=== PATIENT | female | born 1980 | race Caucasian/White ===

== ENCOUNTER 2020-08-12 12:11 | Outpatient (CLI) | payer OTHER, SELFPAY ==
--- NOTE | ~2020-08-12 | MM_ITS ---
EXAMINATION: MM screening toribio BI w nakia HISTORY: Screening mammogram TECHNIQUE: Craniocaudal and mediolateral oblique 3-D tomosynthesis images were obtained and synthetic 2-D images were generated. CAD analysis was submitted and interpreted. COMPARISON: No prior mammogram is available for comparison at this institution. BREAST PARENCHYMAL COMPOSITION: There are scattered areas of fibroglandular density. FINDINGS: There is asymmetry in the upper outer left breast. Diagnostic left mammogram and left breas t ultrasound examination are recommended. Otherwise there is no evidence of suspicious mass, calcification, or architectural distortion to sugg est malignancy in either breast. IMPRESSION: 1. Left upper outer quadrant breast mammographic asymmetry 2. Diagnostic left mammogram and left breast ultrasound examination are recommended. BI-RADS Category 0: Incomplete: Needs additional imaging evaluation. Reviewed, dictated and finalized at location A. IMPRESSION: 1. Left upper outer quadrant breast mammographic asymmetry 2. Diagnostic left mammogram and left breast ultrasound examination are recomme nded. BI-RADS Category 0: Incomplete: Needs additional imaging evaluation.
== END 2020-08-12 12:12 | disposition home or self-care (01) ==
PROVIDERS: PCP Nurse Practitioner; Visit Provider Nurse Practitioner
DX: Z12.31 Encounter for screening mammogram for malignant neoplasm of breast (principal)
CPT/HCPCS: 77063; 77067

== ENCOUNTER 2020-11-26 09:31 | Outpatient (CLI) | payer OTHER, SELFPAY ==
--- NOTE | ~2020-11-26 | MMUS_ITS ---
EXAMINATION: MM diagnostic toribio LT w nakia, US breast LT limited HISTORY: Mammographic asymmetry in upper outer left breast on 08/12/2020 screening mammogram TECHNIQUE: Additional 3-D tomosynthesis images of the left breast were performed and synthetic 2-D im ages were generated. CAD analysis was submitted and interpreted. High resolution upper outer quadrant left breast ultrasound was performed. COMPARISON: 08/12/2020 bilateral digital screening mammogram 06/14/2018 bilateral digital screening mammogram FINDINGS: MAMMOGRAPHIC FINDINGS: No reproducible focal mass lesion on orthogonal views is detected ULTRASOUND: 1:00 3 cm from nipple: 1.8 x 3.3 x 3.0 mm circumscribed parallel hypoechoic lesion without internal v ascularity or posterior shadowing, likely benign 1:00 4 cm from nipple: Parallel circumscribed 2.6 x 4.1 x 3.9 mm sonolucency with through transmissio n posterior enhancement, no internal vascularity, consistent with benign cysts 3:00 4 cm from nipple: Parallel circumscribed 3.1 x 6.6 x 8.4 mm sonolucency, consistent with cyst 2:00 2 cm from nipple: Parallel circumscribed mildly irregular hypoechoic 2.8 x 4.4 x 4.9 mm lesion w ith some posterior shadowing; ultrasound-guided biopsy is recommended IMPRESSION: 1. Posterior shadowing or 0.9 mm lesion at 2:00 2 cm from nipple 2. Ultrasound-guided biopsy of 2:00 lesion 2 cm from nipple is recommended BI-RADS category 4, suspicious findings. Reviewed, dictated and finalized at location A. IMPRESSION: 1. Posterior shadowing or 0.9 mm lesion at 2:00 2 cm from nipple 2. Ultrasound-guided biopsy of 2:00 lesion 2 cm from nipple is recommended BI-RADS category 4, suspicious findings.
== END 2020-11-26 09:32 | disposition home or self-care (01) ==
LOC: CHSIMG 09:32
PROVIDERS: PCP Nurse Practitioner; Visit Provider Nurse Practitioner
DX: R92.8 Other abnormal and inconclusive findings on diagnostic imaging of breast (principal)
CPT/HCPCS: 76642; 77061; 77065; G0279

== ENCOUNTER 2020-12-08 13:28 | Outpatient (CLI) | payer OTHER, SELFPAY ==
--- NOTE | ~2020-12-08 | US_ITS ---
EXAMINATION: Consultation US INDICATION: Mass in the upper outer quadrant of the right breast. TECHNIQUE: Limited high-resolution left breast ultrasound is performed. COMPARISON: None available FINDINGS: Patient presents for ultrasound-guided biopsy of the left breast mass seen on diagnostic ma mmogram and ultrasound. With real-time scanning, a mass at the 2:00 location 2 cm from the nipple shruti suring up to 5 mm has sonographic features suggestive of a cyst. Other areas seen on recent ultrasoun d appear to be due to shadowing from supporting ligaments. This was discussed with the patient and a course of six-month follow-up mammogram and ultrasound were decided upon. IMPRESSION: 1. Probably benign left breast mass. Follow-up left diagnostic mammogram and ultrasound in six months are recommended. BI-RADS category 3, probably benign findings. Reviewed, dictated and finalized at location D. IMPRESSION: 1. Probably benign left breast mass. Follow-up left diagnostic mammogram and ul trasound in six months are recommended. BI-RADS category 3, probably benign findings.
== END 2020-12-08 13:29 | disposition home or self-care (01) ==
LOC: CHSIMG 13:29
PROVIDERS: PCP Nurse Practitioner; Visit Provider Nurse Practitioner
DX: R92.8 Other abnormal and inconclusive findings on diagnostic imaging of breast (principal)
CPT/HCPCS: 99199

== ENCOUNTER 2021-07-25 09:06 | Outpatient (CLI) | payer OTHER, SELFPAY ==
--- NOTE | ~2021-07-25 | MMUS_ITS ---
EXAMINATION: MM diagnostic toribio LT w nakia, US breast LT limited HISTORY: Follow-up of abnormal finding at 2:00 2 cm from nipple on 11/22/2020 left breast ultrasound e xamination TECHNIQUE: Full field and spot 3-D tomosynthesis images of the left breast were performed and synthet ic 2-D images were generated. CAD analysis was submitted and interpreted. High resolution upper outer and lower-outer quadrant left breast ultrasound was performed. COMPARISON: 11/22/2020 diagnostic left mammogram and limited left breast ultrasound BREAST PARENCHYMAL COMPOSITION: There are scattered areas of fibroglandular density. FINDINGS: MAMMOGRAPHIC FINDINGS: There is suggestion of a focal area of asymmetry in the outer mid left breast at mid to posterior dep th (craniocaudal Tomosynthesis images 39, 40/74) on the initial full field left CC view, but this is not confirmed on coned compression CC view no her on ML or MLO imaging. No suspicious mass, architectural distortion, malignant calcification, skin thickening or retraction is noted otherwise. ULTRASOUND: There are scattered occasional parallel circumscribed hypoechoic and sonolucent areas, the largest si tuated at 3:00 4 cm from the nipple, measuring 7.9 x 3.3 x 6.2 mm, with through transmission posterio r shadowing. No suspicious mass or shadowing is detected. IMPRESSION: 1. No mammographic evidence of malignancy 2. Routine annual mammographic screening is recommended BI-RADS Category 2: Benign finding(s). Reviewed, dictated and finalized at location A. IMPRESSION: 1. No mammographic evidence of malignancy 2. Routine annual mammographic screening is recommended BI-RADS Category 2: Benign finding(s).
== END 2021-07-25 09:07 | disposition home or self-care (01) ==
LOC: CHSIMG 09:11
PROVIDERS: PCP Nurse Practitioner
DX: R92.8 Other abnormal and inconclusive findings on diagnostic imaging of breast (principal)
CPT/HCPCS: 76642; 77061; 77065; G0279

== ENCOUNTER 2021-09-12 13:59 | Outpatient (CLI) | payer OTHER, SELFPAY ==
--- NOTE | ~2021-09-12 | MM_ITS ---
EXAMINATION: MM screening toribio RT w nakia HISTORY: Screening right mammogram, recent left diagnostic mammogram TECHNIQUE: Craniocaudal and mediolateral oblique 3-D tomosynthesis images were obtained and synthetic 2-D images were generated. CAD analysis was submitted and interpreted. COMPARISON: 08/12/2020, 06/14/2018 BREAST PARENCHYMAL COMPOSITION: There are scattered areas of fibroglandular density. FINDINGS: There is no suspicious mass, calcification, or architectural distortion to suggest malignan cy. There has been no suspicious interval change. IMPRESSION: 1. No mammographic evidence of malignancy. 2. Recommend routine screening mammography in one year. BI-RADS Category 1: Negative Reviewed, dictated and finalized at location A.
== END 2021-09-12 14:00 | disposition home or self-care (01) ==
LOC: CHSIMG 14:01
PROVIDERS: PCP Nurse Practitioner; Visit Provider Nurse Practitioner
DX: Z12.31 Encounter for screening mammogram for malignant neoplasm of breast (principal)
CPT/HCPCS: 77063; 77067

== ENCOUNTER 2022-09-15 08:43 | Outpatient (CLI) | payer BC, SELFPAY ==
--- NOTE | ~2022-09-15 | MM_ITS ---
EXAMINATION: MM screening toribio BI w nakia HISTORY: Screening mammogram TECHNIQUE: Craniocaudal and mediolateral oblique 3-D tomosynthesis images were obtained and synthetic 2-D images were generated. CAD analysis was submitted and interpreted. COMPARISON: 09/12/2021 bilateral screening mammogram 07/25/2021 diagnostic left mammogram and limited left breast ultrasound examination 11/22/2020 diagnostic left mammogram and limited left breast ultrasound examination 08/12/2020, 06/14/2018 bilateral screening mammogram examinations BREAST PARENCHYMAL COMPOSITION: There are scattered areas of fibroglandular density. FINDINGS: There is no evidence of suspicious mass, calcification, or architectural distortion to sugg est malignancy in either breast. There has been no suspicious interval change. IMPRESSION: 1. No mammographic evidence of malignancy. 2. Recommend routine screening mammography in one year. BI-RADS Category 1: Negative Reviewed, dictated and finalized at location A.
== END 2022-09-15 08:44 | disposition home or self-care (01) ==
LOC: CHSIMG 08:47
PROVIDERS: PCP Nurse Practitioner; Visit Provider Nurse Practitioner
DX: Z12.31 Encounter for screening mammogram for malignant neoplasm of breast (principal)
CPT/HCPCS: 77063; 77067

== ENCOUNTER 2023-09-26 13:16 | Outpatient (CLI) | payer BC, SELFPAY ==
--- NOTE | ~2023-09-26 | MM_ITS ---
EXAMINATION: MM screening [facility] BI w n[place] HISTORY: Screening TECHNIQUE: Craniocaudal and mediolateral oblique 3-D tomosynthesis images were obtained and synthetic 2-D images were generated. CAD analysis was submitted and interpreted. COMPARISON: Comparison to multiple prior studies sequentially, with oldest reviewed study dated 06/14. BREAST PARENCHYMAL COMPOSITION: Not dense: There are scattered areas of fibroglandular density. FINDINGS: There is no evidence of suspicious mass, calcification, or architectural distortion to sugg est malignancy in either breast. There has been no suspicious interval change. IMPRESSION: 1. No mammographic evidence of malignancy. 2. Recommend routine screening mammography in one year. BI-RADS Category 1: Negative Reviewed, dictated and finalized at location B.
== END 2023-09-26 13:17 | disposition home or self-care (01) ==
LOC: CHSIMG 13:17
PROVIDERS: PCP Nurse Practitioner; Visit Provider Nurse Practitioner
DX: Z12.31 Encounter for screening mammogram for malignant neoplasm of breast (principal)
CPT/HCPCS: 77063; 77067

== ENCOUNTER 2024-10-22 13:15 | Outpatient (CLI) | payer BC, SELFPAY ==
--- NOTE | ~2024-10-22 | MM_ITS ---
EXAMINATION: MM screening toribio BI w nakia HISTORY: Screening mammogram, family history of breast cancer in her mother. TECHNIQUE: Craniocaudal and mediolateral oblique 3-D tomosynthesis images were obtained and synthetic 2-D images were generated. CAD analysis was submitted and interpreted. COMPARISON: 09/26/2023, 09/15/2022, 09/12/2021 BREAST PARENCHYMAL COMPOSITION:Not Dense. The breasts are almost entirely fatty FINDINGS: No suspicious mass, calcification, or architectural distortion are identified in either breast to suggest malignancy. There has been no suspicious interval change. IMPRESSION: No mammographic evidence of malignancy. Recommend routine screening mammography in one year. BI-RADS Category 1: Negative Reviewed, dictated and finalized at location .
== END 2024-10-22 13:16 | disposition home or self-care (01) ==
LOC: CHSIMG 13:18
PROVIDERS: PCP Nurse Practitioner; Visit Provider Physician Assistant
DX: Z12.31 Encounter for screening mammogram for malignant neoplasm of breast (principal)
CPT/HCPCS: 77063; 77067